=== PATIENT | male | born 1940 | race Caucasian/White ===

== ENCOUNTER 2017-10-18 11:00 | Emergency (ER) | payer MEDICARE, OTHER, SELFPAY ==
--- NOTE | 2017-10-18 11:09 | DI.RAD.S_ITS ---
PROCEDURE: XR FOOT RT MIN 3V INDICATIONS: pain swelling TECHNIQUE: 3 views of the foot were acquired. COMPARISON: None. FINDINGS: Bones: No fractures or dislocations. No suspicious bony lesions. Degenerative changes are present within the digits. Small areas of subchondral cyst versus erosion formation are noted at the first MTP joint with subchondral sclerosis and joint space narrowing. There is subluxation at the second and fifth PIP joints. Soft tissues: No tibiotalar joint effusion. Achilles tendon appears normal. Calcification is present at the calcaneus. IMPRESSION: Subluxation as above. This is suspected to be chronic. However, recommend correlation to recent trauma. Prominent degenerative changes are noted at the first MTP joint suggestive of degenerative change. Erosions can also be seen with gout and clinical correlation is recommended. Dictated by: Elizabeth aMrtin M.D. on 10/18/2017 at 11:44 Approved by: Elizabeth Martin M.D. on 10/18/2017 at 11:46
[2017-10-18 11:10] VITALS: BMI 31.4
--- NOTE | 2017-10-18 12:17 | ED.LOWEXIN ---
HPI - Extremity Injury (Lower) <Kelly Bowden PA-C - Last Filed: 10/18/17 19:45> General Chief Complaint: Extremity Injury, Lower Stated Complaint: SWOLLEN AND PAIN IN RIGHT FOOT Time Seen by Provider: 10/18/17 12:18 Source: patient Mode of arrival: ambulatory Limitations: no limitations History of Present Illness HPI Narrative: This 77-year-old gentleman comes in today due to right foot pain, redness, and swelling. He states that he noticed a little of this last night upon awaking this morning, it was really painful to stand on it. He states that ?now I feel silly for being here?, because it is much better, seem to feel better once he got his shoes and socks on. He states that he does have a history of gout in initially thought this might be what it was. He has history of deformities in all of his toes. He states that 10 days ago he had some right calf pain and swelling and Doppler was done as an outpatient and it was negative. It waxed and waned a little bit over the next few days and got worse again so he was placed on Keflex for possible cellulitis from some minor scabs he had on the wood. He states he has been on this for a few days and it seems better, calf pain is improving. He states that he had a few chills last night, no known fevers at home. He denies any trauma, any other new medications, dyspnea or chest pain, and again states this is significantly improved from this morning. He does have some chronic swelling and is on Lasix. Related Data Allergies Allergy/AdvReac Type Severity Reaction Status Date / Time ANTIBIOTIC Allergy Unknown PT DOESN'T Uncoded 10/18/17 11:10 KNOW THE NAME Review of Systems <Kelly Bowden PA-C - Last Filed: 10/18/17 19:45> Review of Systems All systems reviewed & are unremarkable except as noted in HPI and below Exam <Kelly Bowden PA-C - Last Filed: 10/18/17 19:45> Narrative Exam Narrative: GENERAL APPEARANCE: Patient sitting comfortably, in no distress. LUNGS: Clear to auscultation bilaterally. HEART: Rate and rhythm regular without murmur, normal S1 and S2, no S3 or S4. MUSCULOSKELETAL: There are deformities on all of the toes on each foot with lateral deviation of the right foot toes. He has moderate tenderness over the 1st MT from inferior to the malleolus distal to the mid point, not over the 1st metatarsal joint. He has normal range of motion of the ankle and is able to plantar and dorsiflex the toes. Achilles is intact by palpation. EXTREMITIES: There is no cyanosis. Right PT and DP pulses are intact. He has moderate pitting on the right side from the calf distal, with tenderness mostly inferior to the calf. Trace pitting on the left, numerous varicosities bilaterally. DERMATOLOGIC: There are some old, shallow scabbed wounds on both shins. There is no erythema or streaking over either lower extremity, however the left 1st metatarsal area is fairly warm to touch Initial Vital Signs Initial Vital Signs: Vital Signs Temperature 98.3 F 10/18/17 13:45 Pulse Rate 68 10/18/17 13:45 Respiratory Rate 14 10/18/17 13:45 Blood Pressure 109/69 10/18/17 13:45 Pulse Oximetry 96 10/18/17 13:45 <Uli Echols MD - Last Filed: 10/20/17 08:34> Initial Vital Signs Initial Vital Signs: Vital Signs Temperature 98.3 F 10/18/17 13:45 Pulse Rate 68 10/18/17 13:45 Respiratory Rate 14 10/18/17 13:45 Blood Pressure 109/69 10/18/17 13:45 Pulse Oximetry 96 10/18/17 13:45 Course <Kelly Bowden PA-C - Last Filed: 10/18/17 19:45> Orders Ordered: ED Orders 10/18/17 11:09 XR foot RT min 3V Stat Vital Signs - 8 hr 10/18/17 13:45 Temperature 98.3 F Pulse Rate 68 Respiratory Rate 14 Blood Pressure [Right Arm] 109/69 Pulse Oximetry 96 <Uli Echols MD - Last Filed: 10/20/17 08:34> Orders Ordered: ED Orders 10/18/17 11:09 XR foot RT min 3V Stat Vital Signs - 8 hr 10/18/17 13:45 Temperature 98.3 F Pulse Rate 68 Respiratory Rate 14 Blood Pressure [Right Arm] 109/69 Pulse Oximetry 96 MDM - Extremity Injury (Lower) <KAYA Luna Last Filed: 10/18/17 19:45> Imaging Data extremity: Radiologist's impression: View Report History [address] [address] XRay Report Signed Patient: Yusuf Oconnell MR#: [id number] : 1940 Acct:[id number] Age/Sex: 77 / M Date of Service: 10/18/17 Loc: ED Accession Number: [id number] Procedure: XR foot RT min 3V Ordering Provider: Uli Echols M.D. PROCEDURE: XR FOOT RT MIN 3V INDICATIONS: pain swelling TECHNIQUE: 3 views of the foot were acquired. COMPARISON: None. FINDINGS: Bones: No fractures or dislocations. No suspicious bony lesions. Degenerative changes are present within the digits. Small areas of subchondral cyst versus erosion formation are noted at the first MTP joint with subchondral sclerosis and joint space narrowing. There is subluxation at the second and fifth PIP joints. Soft tissues: No tibiotalar joint effusion. Achilles tendon appears normal. Calcification is present at the calcaneus. IMPRESSION: Subluxation as above. This is suspected to be chronic. However, recommend correlation to recent trauma. Prominent degenerative changes are noted at the first MTP joint suggestive of degenerative change. Erosions can also be seen with gout and clinical correlation is recommended. Dictated by: Elizabeth Martin M.D. on 10/18/2017 at 11:44 Approved by: Elizabeth Martin M.D. 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 Your foot does not quite look typical for gout today on exam, however what you described happening this morning and last night does sound more like gout. Your x-ray has some chronic changes which could also be due to gout. Given this, it is reasonable for you to start the prednisone that you have at home for a few days to see if you get better. Please start 20mg once daily and take for 3-5 days (I would like you to call Dr. Son's office first thing on Friday and follow up there as you may need further testing if you are not getting better). You should return here as we talked about if you have any acutely worsening symptoms over the weekend such as increasing pain, swelling, or redness again or fever. Thank you for your patients with our busy emergency department today. Referrals: Balaji Son MD [Primary Care Provider] - <Uli Echols MD - Last Filed: 10/20/17 08:34> Sign Out Provider Sign Out Attestation: The PA/SUPERVISOR COOK ROOM functioned independently for the care of this pt, I was available, but not asked to participate in care. I am unable to determine appropriateness of management without personally examining the pt.
[2017-10-18 13:45] VITALS: BP 109/69; PULSE 68; RESP 14; TEMP 36.8; O2SAT 96
== END 2017-10-18 13:52 | disposition home or self-care (01) ==
PROVIDERS: Emergency Provider Internal Medicine; PCP Specialist
DX: M10.9 Gout, unspecified (principal)
CPT/HCPCS: 73630; 99282; 99283